=== PATIENT | male | born 1970 | race Two or more races ===

== ENCOUNTER 2020-03-31 15:32 | Emergency (ER) | payer SELFPAY ==
[~2020-03-31] VITALS: Ht 167.6 cm; Wt 74.8 kg
[2020-03-31 16:00] VITALS: BP 119/65
[2020-03-31] MEDS ORDERED: Tetanus/Diptheria/Pertussis IM ONE (16:30)
[2020-03-31] MEDS ORDERED: Ketorolac 30mg Inj IM ONE (16:30)
[2020-03-31] MEDS ORDERED: HYDROcodone/Acetamin 5/325 tab ORAL ONE (16:30)
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
[2020-03-31] MEDS ORDERED: IBU800 MG PO (18:17)
[2020-03-31] MEDS ORDERED: NORCO 5-325 TA1 EAC1 ORAL (18:17)
[2020-03-31] MEDS ORDERED: CEPHALEXIN500 MG ORAL (18:18)
[2020-03-31] MEDS ORDERED: Bacitracin Oint UD TOPIC ONE ×2 (18:30)
[2020-03-31 18:48] VITALS: BP 125/71
--- NOTE | 2020-03-31 20:30 | Diagnostic Imaging Report ---
Clinical Indication:Pain, trauma Technique: 3 views of the right wrist Comparison: None Findings: No acute fractures. No dislocations. The joint spaces are preserved. Impression: Negative
--- NOTE | 2020-03-31 20:31 | Diagnostic Imaging Report ---
Indications:Pain, trauma Technique: Three or 4 views of the right elbow Comparison: None Findings:No acute fractures. No dislocations. Joint spaces are preserved. No definite effusion Impression: No acute bony trauma
--- NOTE | 2020-03-31 21:04 | Diagnostic Imaging Report ---
Indication: Trauma, pain Technique: 3 views of the right shoulder Comparison: none Findings: There is a comminuted fracture of the right humeral head and neck. No dislocation. The joint spaces are preserved. Impression: Positive for right humeral head and neck fracture
== END 2020-03-31 18:48 | disposition home or self-care (01) ==
LOC: EMR 16:05
DX: S42.301A Unspecified fracture of shaft of humerus, right arm, initial encounter for closed fracture (principal); S20.219A Contusion of unspecified front wall of thorax, initial encounter; S51.011A Laceration without foreign body of right elbow, initial encounter; N20.0 Calculus of kidney; R16.0 Hepatomegaly, not elsewhere classified; V49.9XXA Car occupant (driver) (passenger) injured in unspecified traffic accident, initial encounter; Y92.410 Unspecified street and highway as the place of occurrence of the external cause; L08.9 Local infection of the skin and subcutaneous tissue, unspecified; R07.9 Chest pain, unspecified; Z23 Encounter for immunization
CPT/HCPCS: 71250; 73030; 73080; 73110; 90471; 90715; 96372; 99284; J1885